=== PATIENT | female | born 1990 | race Native Hawaiian/Other Pacific Islander ===

== ENCOUNTER 2016-12-13 15:42 | Emergency (ER) | payer OTHER ==
[~2016-12-13] VITALS: Ht 162.6 cm; Wt 59.9 kg
[2016-12-13 15:45] VITALS: BP 137/91; TEMP 98.4
[2016-12-13] MEDS ORDERED: ESCI10TA PO (15:51)
== END 2016-12-13 16:03 | disposition home or self-care (01) ==
LOC: ED 15:42
DX: L01.00 Impetigo, unspecified (principal); S70.361A Insect bite (nonvenomous), right thigh, initial encounter; W57.XXXA Bitten or stung by nonvenomous insect and other nonvenomous arthropods, initial encounter; Y92.098 Other place in other non-institutional residence as the place of occurrence of the external cause
CPT/HCPCS: 99281

== ENCOUNTER 2020-05-14 19:46 | Emergency (ER) | payer OTHER ==
[~2020-05-14] VITALS: Ht 165.1 cm; Wt 59.0 kg
[~2020-05-14 19:46] MED LIST: ESCI10TA PO
[2020-05-14] MEDS ORDERED: BUSPIRONE5 MG PO (20:45)
[2020-05-14] MEDS ORDERED: FLUOXETINE20 MG PO (20:45)
[2020-05-14 21:00] LABS: PLATELET COUNT 300 K/uL (152-353)
[2020-05-14 21:01] LABS: POTASSIUM 3.1 mmol/L (3.6-5.2); SODIUM 136 mmol/L (136-145)
[2020-05-15 01:06] VITALS: BP 110/73; TEMP 98.3
== END 2020-05-15 01:06 | disposition home or self-care (01) ==
LOC: ED 19:46
PROVIDERS: Hospitalist
DX: F11.10 Opioid abuse, uncomplicated (principal); N39.0 Urinary tract infection, site not specified; E87.6 Hypokalemia; Z03.818 Encounter for observation for suspected exposure to other biological agents ruled out
CPT/HCPCS: 36415; 80053; 80307; 80320; 80329; 81000; 81025; 85027; 87077; 87086; 87088; 87186; 87635; 93005; 96365; 99285; J0696; U0003